=== PATIENT | male | born 1965 | race American Indian/Alaskan Native ===

== ENCOUNTER 2016-11-13 08:08 | Day surgery (SDC) | payer BC ==
[2016-11-10 11:36] VITALS: BMI 39.1
[2016-11-13 10:33] VITALS: TEMP 98
[2016-11-13 14:05] VITALS: BP 113/65; PULSE 84
--- NOTE | 2016-11-14 12:42 | PATH ---
Surgical Pathology Report Patient Name: LYUBOV ROMAN [facility]. Rec. #: [id number] /Age/Gender: 1965 (Age: 51) / M Account: [id number] Location: ASU-ENDOSCOPY Taken: 11/13/2016 Received: 11/13/2016 Reported: 11/14/2016 Physicians: Mukesh Nieves M.D. Specimen(s) Received A: POLYP CECUM B: POLYP TRANSVERSE COLON C: POLYP DESCENDING COLON Clinical History Colon screening, history of colon polyps Diverticulosis, colon polyps, hemorrhoids, redundant colon Final Diagnosis A. COLON, CECUM, POLYP, POLYPECTOMY: HYPERPLASTIC TYPE POLYP WITH FOCAL FEATURES SUGGESTIVE OF SESSILE SERRATED ADENOMA. B. COLON, TRANSVERSE, POLYP, POLYPECTOMY: TUBULAR ADENOMA. C. COLON, DESCENDING, POLYP, POLYPECTOMY: TUBULAR ADENOMA. Electronically Signed Mao Moy M.D. Gross Description A. Received in formalin, labeled "polyp cecum" is a ojeda, irregular portion of soft tissue measuring 0.5 cm in greatest dimension. The specimen is submitted in toto in one cassette. B. Received in formalin, labeled "polyp transverse colon" is a ojeda, irregular portion of soft tissue measuring 0.6 cm in greatest dimension. The specimen is submitted in toto in one cassette. C. Received in formalin, labeled "polyp descending colon" is a ojeda, polypoid portion of soft tissue measuring 0.6 cm in greatest dimension. The specimen is submitted in toto in one cassette. /11/13/201611/13/2016
== END 2016-11-13 10:55 | disposition home or self-care (01) ==
LOC: JASU-ENDO 08:08
PROVIDERS: ATTEND Internal Medicine Gastroenterology
PROC: 0DBL8ZX Excision of Transverse Colon, Via Natural or Artificial Opening Endoscopic, Diagnostic (ICD-10-PCS; 2016-11-13)
PROC: 0DBM8ZX Excision of Descending Colon, Via Natural or Artificial Opening Endoscopic, Diagnostic (ICD-10-PCS; 2016-11-13)
PROC: 0DBH8ZX Excision of Cecum, Via Natural or Artificial Opening Endoscopic, Diagnostic (ICD-10-PCS; principal; 2016-11-13 09:00)
DX: Z12.11 Encounter for screening for malignant neoplasm of colon (principal); Z86.010 Personal history of colon polyps; D12.0 Benign neoplasm of cecum; D12.4 Benign neoplasm of descending colon; D12.3 Benign neoplasm of transverse colon; K57.30 Diverticulosis of large intestine without perforation or abscess without bleeding; K64.8 Other hemorrhoids; K63.89 Other specified diseases of intestine
CPT/HCPCS: 88305-TC

== ENCOUNTER 2017-02-22 22:51 | Observation (INO) | payer BC ==
--- NOTE | 2017-02-22 23:07 | PDOC ---
History of Present Illness - General History Source: Patient Exam Limitations: No Limitations <Shruti Agosto - Last Filed: 02/23/17 01:26> <Swapnil Billy - Last Filed: 02/23/17 02:00> - General Chief Complaint: Chest Pain Stated Complaint: CHEST PAIN Time Seen by Provider: 02/22/17 23:04 - History of Present Illness Initial Comments: 02/22/17 23:33 Patient is a 51 with past medical history of asthma and hypertension( not on medication was weight controlled) who presents to the ED with chest pain, sharp in character, nonradiating, pleuritic, constant, 5/10, waxing and waning. He states that the pain is reproducible over the left chest. He denies taking anything to alleviate the chest pain. He reports increased stress due to deaths in the family. He denies any sick contact. He reports a [address] ride to [place] last week. SH: non smoker, no alcohol or drug use. Allergies: none FH: brother [place] at 57 PCP- Dr. Jacques Tool Maintenance Technician - Dr. Rebolledo (Shruti Agosto) Past History <Shruti Agosto - Last Filed: 02/23/17 01:26> - Past Medical History Anemia: No Asthma: Yes Cancer: No Cardiac Disorders: No CVA: No COPD: No CHF: No Dementia: No Diabetes: No GI Disorders: Yes (GERD, CONSTIPATION, COLON POLYPS) Disorders: No HTN: Yes Hypercholesterolemia: Yes Liver Disease: Yes (NAFLD, FATTY LIVER, 2 HEPATIC HEMANGIOMATA, HEPATITIS) Seizures: No Thyroid Disease: No - Surgical History Abdominal Surgery: Yes (hernia repair w/mesh) Appendectomy: No Cardiac Surgery: No Cholecystectomy: No Lung Surgery: No Neurologic Surgery: No Orthopedic Surgery: Yes (SX OF KNEE) - Immunization History Immunization Up to Date: No - Psycho/Social/Smoking Cessation Hx Anxiety: No Suicidal Ideation: No Smoking History: Never smoked Have you smoked in the past 12 months: No Hx Alcohol Use: Yes (OCCA.) Drug/Substance Use Hx: No Substance Use Type: None Hx Substance Use Treatment: No <Swapnil Billy - Last Filed: 02/23/17 02:00> - Past Medical History Allergies/Adverse Reactions: Allergies Allergy/AdvReac Type Severity Reaction Status Date / Time No Known Drug Allergies Allergy Verified 02/23/17 00:41 Home Medications: Ambulatory Orders NK [No Known Home Medication] 02/23/17 Cardiac Specific PMH - Complaint Specific PMHX Pacemaker: No <Swapnil Billy - Last Filed: 02/23/17 02:00> Review of Systems - Review of Systems Able to Perform ROS?: Yes <Shruti Agosto - Last Filed: 02/23/17 01:26> <Swapnil Billy - Last Filed: 02/23/17 02:00> - Review of Systems Comments:: 02/22/17 23:33 CONSTITUTIONAL: No fever, no chills, no fatigue EYES: No visual changes ENT: No ear pain, no sore throat CARDIOVASCULAR: +chest pain. no palpitations RESPIRATORY: No cough, no SOB GI: No abdominal pain, no nausea, no vomiting, no constipation, no diarrhea GENITOURINARY: No dysuria, no frequency, no hematuria MUSCULOSKELETAL: No back pain, no joint pain, no myalgias SKIN: No rash NEURO: No headache (Shruti Agosto) *Physical Exam <Shruti Agosto - Last Filed: 02/23/17 01:26> <Swapnil Billy - Last Filed: 02/23/17 02:00> - Vital Signs Last Vital Signs Temp Pulse Resp BP Pulse Ox 79 17 135/95 98 02/22/17 23:45 02/22/17 23:45 02/22/17 23:45 02/22/17 23:45 - Physical Exam Comments: 02/22/17 23:34 CONSTITUTIONAL: Well-appearing; well-nourished; in no apparent distress HEAD: Normocephalic; atraumatic EYES: PERRL; EOM intact ENMT: External appears normal; normal oropharynx NECK: Supple; non-tender; no cervical lymphadenopathy CARD: (+) reproducible left anterior chest wall tenderness. Normal S1, S2; no murmurs, rubs, or gallops RESP: Normal chest excursion with respiration; breath sounds clear and equal bilaterally; no wheezes, rhonchi, or rales ABD: Soft, non-distended; non-tender; no palpable organomegaly, no palpable hernias EXT: Normal ROM in all four extremities; non-tender to palpation; distal pulses intact SKIN: Warm, dry, no rash NEURO: No focal neurological deficiencies. (Shruti Agosto) Heart Score/ECG Review <Shruti Agosto - Last Filed: 02/23/17 01:26> <Swapnil Billy - Last Filed: 02/23/17 02:00> #1 02/22/17 23:35 NS at 74 bpm Normal ECG (Shruti Agosto) ED Treatment Course - LABORATORY CBC & Chemistry Diagram: 02/22/17 23:35 02/22/17 23:33 <Shruti Agosto - Last Filed: 02/23/17 01:26> - LABORATORY CBC & Chemistry Diagram: 02/22/17 23:35 02/22/17 23:33 <Swapnil Billy - Last Filed: 02/23/17 02:00> - ADDITIONAL ORDERS Additional order review: Laboratory Results 02/22/17 02/22/17 02/22/17 23:35 23:35 23:33 INR 1.05 D-Dimer < 200 Sodium 141 Potassium 4.3 Chloride 103 Carbon Dioxide 27 Anion Gap 11 BUN 15 Creatinine 1.2 Creat Clearance w eGFR > 60 Random Glucose 116 H Calcium 9.0 Total Bilirubin 0.2 D AST 18 ALT 36 Alkaline Phosphatase 84 D Creatine Kinase 114 Troponin I < 0.02 Total Protein 7.4 Albumin 3.9 02/22/17 23:35 RBC 5.41 MCV 83.5 MCHC 33.3 RDW 14.1 MPV 7.1 L Neutrophils % 59.8 Lymphocytes % 30.5 D Monocytes % 7.0 Eosinophils % 1.6 Basophils % 1.1 - RADIOLOGY Radiology Studies Ordered: Category Date Time Status CHEST X-RAY PORTABLE* [RAD] Stat Radiology 02/23/17 00:57 Taken - Medications Given in the ED: ED Medications Discontinued Medications Generic Name Dose Route Start Last Admin Trade Name Freq PRN Reason Stop Dose Admin Aspirin 325 mg 02/22/17 23:24 02/22/17 23:36 Asa - PO 02/22/17 23:25 325 mg ONCE ONE Administration Famotidine/Sodium Chloride 50 mls @ 100 mls/hr 02/22/17 23:24 02/22/17 23:37 Pepcid 20 Mg Premixed Ivpb - IVPB 02/22/17 23:53 100 mls/hr ONCE ONE Administration Nitroglycerin 0.4 mg 02/22/17 23:24 02/22/17 23:37 Nitrostat - SL 02/22/17 23:25 0.4 mg ONCE ONE Administration Nitroglycerin 1 inch 02/22/17 23:24 02/22/17 23:36 Nitro-Bid 2% Paste - TD 02/22/17 23:25 1 inch ONCE ONE Administration Medical Decision Making <Shruti Agosto - Last Filed: 02/23/17 01:26> <Swapnil Billy - Last Filed: 02/23/17 02:00> - Medical Decision Making 02/23/17 01:17 A call was placed to Dr. Jacques at his service. Awaiting a call back from Dr. Baker, who is software applications designer. 02/23/17 01:[address] Baker (Shruti Agosto) 02/23/17 01:58 Patient is a 51-year-old male with history of hypertension, not on any medications currently, and strong family history of coronary artery disease complains of atraumatic, partially pleuritic left-sided chest pain associated with significantly elevated blood pressure. In the ER, patient is awake and alert, initially hypertensive. EKG reveals no evidence of acute ischemia. Chest x-ray reveals no evidence of infiltrate or effusion or cardiomegaly. Patient received aspirin, followed by sublingual and transdermal nitroglycerin and Pepcid IV. Patient reports resolution of his discomfort at this time. First set of cardiac enzymes within normal limit. I discussed the case with Dr. Baker covering for Dr. Jacques. Patient will require admission to telemetry for serial cardiac enzymes and cardiology evaluation. (Swapnil Billy) *DC/Admit/Observation/Transfer <Shruti Agosto - Last Filed: 02/23/17 01:26> - Discharge Dispostion Admit: Yes <Swapnil Billy - Last Filed: 02/23/17 02:00> Diagnosis at time of Disposition: Acute coronary syndrome Hypertension Qualifiers: Hypertension type: essential hypertension Qualified Code(s): I10 - Essential ( primary) hypertension - Discharge Dispostion Decision to Admit order Date/Time: Decision to Admit Order Category Date Time Status Decision to Admit to Hospital Routine Admission 02/23/17 01:50 Active - Referrals Referrals: Forrest Jacques MD [Primary Care Provider] - - Attestations Scribe Attestion: 02/22/17 23:35 Documentation prepared by KYRIE Jc, acting as medical front desk specialist for Swapnil Billy MD. (Shruti Agosto) Physician Attestion: 02/23/17 01:58 The documentation was prepared by the scribe under my direct supervision. I have reviewed the documentation which correctly represents the findings, medical decision-making and critical action taken by me. (Swapnil Billy)
[2017-02-22] MEDS ORDERED: FAMOTIDINE 20 MG/50 ML IVPB 50 ML IVPB ONE ×2 (23:24→23:39)
[2017-02-22] MEDS ORDERED: NITROGLYCERIN 2% OINTMENT - 1GM PACKET TD ONE ×2 (23:24→23:39)
[2017-02-22] MEDS ORDERED: ASPIRIN 325 MG TABLET PO ONE (23:24)
[2017-02-22] MEDS ORDERED: NITROGLYCERIN SUBLINGUAL 1/150 0.4 MG TAB SL ONE (23:24)
[2017-02-22] MEDS ORDERED: ASPIRIN 325 MG TABLET ONE (23:38)
[2017-02-22] MEDS ORDERED: NITROGLYCERIN SUBLINGUAL 1/150 0.4 MG TAB ONE (23:39)
[2017-02-22 23:41] LABS: BASOPHIL 1.1 % (0-2.0); EOSINOPHIL 1.6 % (0-4.5); MCH 27.8 pg (25.7-33.7); MCHC 33.3 g/dl (32.0-35.9); MEAN CELL VOLUME 83.5 fl (80-96); MEAN PLT VOLUME 7.1 fl (7.5-11.1); NEUTROPHILS 59.8 % (42.8-82.8); PLATELET COUNT 320 K/MM3 (134-434); RDW 14.1 % (11.9-15.9); WHITE BLOOD COUNT 8.5 K/mm3 (4.0-10.0)
[2017-02-22 23:55] LABS: INR 1.05 (0.82-1.09); PROTHROMBIN TIME (PATIENT) 11.6 SEC (9.98-11.88)
[2017-02-23 00:27] LABS: ALBUMIN 3.9 g/dl (3.4-5.0); ANION GAP 11 (8-16); BILIRUBIN,TOTAL 0.2 mg/dL (0.2-1.0); CO2 27 mmol/L (21-32); COCKROFT - GAULT 116.46; CREATININE 1.2 mg/dL (0.7-1.3); GLUCOSE,RANDOM 116 mg/dL (74-106); SGOT/AST 18 U/L (15-37); SGPT/ALT 36 U/L (12-78); TOT PROT 7.4 g/dl (6.4-8.2)
[2017-02-23 00:29] LABS: ALK PHOS 84 U/L (45-117); TROPONIN I < 0.02 ng/ml (0.00-0.05)
[2017-02-23] MEDS ORDERED: ATORVASTATIN CA 40 MG TABLET (FP) PO ONE (01:40)
[2017-02-23] MEDS ORDERED: NITROGLYCERIN 2% OINTMENT - 1GM PACKET TD SCH (01:45)
[2017-02-23] MEDS: HEPARIN NA (PORCINE) 5,000 UNITS/ML 1ML VIAL SQ SCH ×3 (02:08→21:37)
[2017-02-23 03:31] VITALS: BMI 35.5
[2017-02-23 03:43] LABS: CHOLESTEROL 205 mg/dL (50-200)
[2017-02-23 03:44] LABS: TROPONIN I < 0.02 ng/ml (0.00-0.05)
[2017-02-23 04:15] LABS: LDL CHOLESTEROL (ONLY SJRH) 137 mg/dL (5-100)
[2017-02-23] MEDS: NITROGLYCERIN 2% OINTMENT - 1GM PACKET TD SCH ×4 (05:45→23:46)
[2017-02-23 06:45] LABS: TROPONIN I < 0.02 ng/ml (0.00-0.05)
--- NOTE | 2017-02-23 09:41 | EKG ---
Test Reason : Blood Pressure : / mmHG Vent. Rate : 072 BPM Atrial Rate : 072 BPM P-R Int : 150 ms QRS Dur : 088 ms QT Int : 394 ms P-R-T Axes : 028 061 063 degrees QTc Int : 431 ms NORMAL SINUS RHYTHM EARLY REPOLARIZATION Confirmed by JUAN J CARRILLO MD ([id number]) on 02/23/2017 9:41:41 AM Referred By: Confirmed By:JUAN J CARRILLO MD
--- NOTE | 2017-02-23 09:43 | EKG ---
Test Reason : Blood Pressure : / mmHG Vent. Rate : 074 BPM Atrial Rate : 074 BPM P-R Int : 154 ms QRS Dur : 098 ms QT Int : 374 ms P-R-T Axes : 033 059 055 degrees QTc Int : 415 ms NORMAL SINUS RHYTHM EARLY REPOLARIZATION Confirmed by JUAN J CARRILLO MD ([id number]) on 02/23/2017 9:42:47 AM Referred By: Confirmed By:JUAN J CARRILLO MD
[2017-02-23] MEDS ORDERED: ASPIRIN COATED 81 MG TABLET.EC PO SCH (10:00)
[2017-02-23] MEDS: ACETAMINOPHEN 325 MG TABLET (FP) PO PRN (11:12)
--- NOTE | 2017-02-23 11:43 | HP ---
Admitting History and Physical - Primary Care Physician PCP: Forrest Jacques - Admission Chief Complaint: CHEST PAIN / DYSPNEA History of Present Illness: 51 Y/O MALE WILL KNOWN TO OUR SERVICE, PRESENTS WITH CHEST PAIN THAT PROGRESSIVELY WORSENED YESTERDAY. PATIENT IS MORBIDEL OBESE WITH ASTHMA WELL CONTROLLED, LIPIDEMIA AND A NON-COMPLIANT DIETARY LIFESTYLE. IMPOTANT NOTE PATIENT'S FATHER AND BROTHER HAVE IN THE PASSE 2 WEEKS INCREASING HIS STRESS LEVEL. History Source: Patient Limitations to Obtaining History: No Limitations - Past Medical History Pulmonary: Yes: Asthma - Smoking History Smoking history: Never smoked Have you smoked in the past 12 months: No - Alcohol/Substance Use Hx Alcohol Use: Yes (OCCA.) Home Medications - Allergies Allergies/Adverse Reactions: Allergies Allergy/AdvReac Type Severity Reaction Status Date / Time No Known Drug Allergies Allergy Verified 02/23/17 00:41 - Home Medications Home Medications: Ambulatory Orders NK [No Known Home Medication] 02/23/17 Review of Systems - Review of Systems Constitutional: reports: No Symptoms, Loss of Appetite Eyes: reports: No Symptoms HENT: reports: No Symptoms Neck: reports: No Symptoms Cardiovascular: reports: Chest Pain Respiratory: reports: No Symptoms Gastrointestinal: reports: No Symptoms Genitourinary: reports: No Symptoms Musculoskeletal: reports: No Symptoms Integumentary: reports: No Symptoms Neurological: reports: No Symptoms Endocrine: reports: No Symptoms Hematology/Lymphatic: reports: No Symptoms Psychiatric: reports: No Symptoms Physical Examination Vital Signs: Vital Signs Temperature 97.6 F 02/23/17 05:34 Pulse Rate 78 02/23/17 07:29 Respiratory Rate 20 02/23/17 05:34 Blood Pressure 108/62 02/23/17 05:34 O2 Sat by Pulse Oximetry (%) 98 02/23/17 07:29 Constitutional: Yes: Mild Distress Eyes: Yes: WNL HENT: Yes: WNL Neck: Yes: WNL Cardiovascular: Yes: WNL Respiratory: Yes: WNL Gastrointestinal: Yes: WNL Renal/: Yes: WNL Musculoskeletal: Yes: WNL Extremities: Yes: WNL Edema: No Peripheral Pulses WNL: Yes Integumentary: Yes: WNL Wound/Incision: Yes: Clean/Dry Neurological: Yes: WNL ...Motor Strength: WNL Psychiatric: Yes: WNL Problem List - Problems (1) Acute coronary syndrome Code(s): I24.9 - ACUTE ISCHEMIC HEART DISEASE, UNSPECIFIED (2) Hypertension Code(s): I10 - ESSENTIAL (PRIMARY) HYPERTENSION Qualifiers: Hypertension type: essential hypertension Qualified Code(s): I10 - Essential (primary) hypertension (3) Grieving family Assessment/Plan: DENIES SUICIDE OR HOMICIDAL THOUGHT Code(s): [id number] - Assessment/Plan STRESS TEST TODAY 02 SUPPORT TROPONINS TO BE CHECKED 3 SERIES LIPITOR STARTED
--- NOTE | 2017-02-23 14:26 | CON.CARD ---
Consult Consult Specialty:: Cardiology Reason for Consultation:: Chest pain - History of Present Illness History of Present Illness: 51 M with Family history of CAD, obesity, DICK, HLD, HTN. He has moderate Asthma. He had a recent in the family and started having intermittent chest pain with radiation to his neck with exertion but also with rest. Finally came to the ER with ongoing pain that was relieved with NTP. Has been pain free since. ECG was normal. Negative CE. Stress test today: exercised 7min Bruice to MPHR 84% with moderate inferior wall ischemia with preserved EF. - History Source History Provided By: Patient, Family Member Limitations to Obtaining History: No Limitations - Past Medical History Cardio/Vascular: Yes: HTN, Hyperlipdemia Pulmonary: Yes: Asthma - Past Surgical History Past Surgical History: Yes: Hernia Repair - Alcohol/Substance Use Hx Alcohol Use: Yes (OCCA.) Number of Drinks Daily: 1 - Smoking History Smoking history: Never smoked Have you smoked in the past 12 months: No Home Medications - Allergies Allergies/Adverse Reactions: Allergies Allergy/AdvReac Type Severity Reaction Status Date / Time No Known Drug Allergies Allergy Verified 02/23/17 00:41 - Home Medications Home Medications: Ambulatory Orders NK [No Known Home Medication] 02/23/17 Family Disease History - Family Disease History Family Disease History: Heart Disease: Brother (Aged 57) Review of Systems - Review of Systems Constitutional: reports: No Symptoms Eyes: reports: No Symptoms HENT: reports: No Symptoms Neck: reports: No Symptoms Cardiovascular: reports: No Symptoms Respiratory: reports: No Symptoms Gastrointestinal: reports: No Symptoms Genitourinary: reports: No Symptoms Musculoskeletal: reports: No Symptoms Integumentary: reports: No Symptoms Neurological: reports: No Symptoms Endocrine: reports: No Symptoms Vital Signs: Vital Signs Temperature 97.6 F 02/23/17 05:34 Pulse Rate 78 02/23/17 07:29 Respiratory Rate 20 02/23/17 05:34 Blood Pressure 108/62 02/23/17 05:34 O2 Sat by Pulse Oximetry (%) 98 02/23/17 07:29 Constitutional: Yes: Well Nourished, Obese Eyes: Yes: WNL HENT: Yes: WNL, Atraumatic, Normocephalic Neck: Yes: WNL, Supple, Trachea Midline Respiratory: Yes: WNL, Regular, CTA Bilaterally Gastrointestinal: Yes: Normal Bowel Sounds, Soft Cardiovascular: Yes: Regular Rate and Rhythm JVD: No Carotid Bruit: No PMI: Non-Displaced Heart Sounds: Yes: S1, S2 Musculoskeletal: Yes: WNL Edema: No Peripheral Pulses WNL: Yes - Other Data Labs, Other Data: INR, PTT INR 1.05 (0.82-1.09) 02/22/17 23:35 NSR no STT changes Echo: Report Reviewed Ejection Fraction %: LVEF > or = 40 % Problem List - Problems (1) Acute coronary syndrome Code(s): I24.9 - ACUTE ISCHEMIC HEART DISEASE, UNSPECIFIED (2) Hypertension Code(s): I10 - ESSENTIAL (PRIMARY) HYPERTENSION Qualifiers: Hypertension type: essential hypertension Qualified Code(s): I10 - Essential (primary) hypertension Assessment/Plan 51 M HLD, mod Asthma, Obesity, DICK with new onset angina and moderate Inferior wall ischemia with preserved EF. Given risk factor profile and severity of symptoms, would suggest early cath and possible intervention. Rec: Increase Lipitor 80mg QD ASA 81mg qd NPO after midnight sunday. Arranged for the patient to be transferred to [facility] for cath on sunday with Dr. Muñiz. Discussed with Patient and family in detail.
[2017-02-23] MEDS: METOPROLOL TARTRATE 25 MG TABLET (FP) PO SCH (14:27)
[2017-02-23] MEDS: PANTOPRAZOLE 40 MG TABLET (FP) PO SCH (14:27)
[2017-02-23] MEDS: ATORVASTATIN CA 80 MG TABLET (FP) PO SCH (21:37)
[2017-02-23] MEDS ORDERED: ATORVASTATIN CA 40 MG TABLET (FP) PO SCH (22:00)
[2017-02-23] MEDS ORDERED: NITROGLYCERIN SUBLINGUAL 1/150 0.4 MG TAB ONE (23:12)
[2017-02-23] MEDS ORDERED: NITROGLYCERIN 2% OINTMENT - 1GM PACKET TD ONE (23:16)
--- NOTE | 2017-02-23 23:29 | HOSP ---
Subjective - Review of Symptoms Events since last encounter: I was called to floor by nurse to evaluate patient for chest pain. Patient in bed with hand on his chest. States pain is mid/;left chest, tight/sharp, non radiating pain. Denies lightheadedness, MICHAEL, SOB, palpitations, jaw pain, arm tingling. General: No: Chills, Night Sweats, Fatigue, Malaise HEENT: No: Head Aches, Visual Changes Pulmonary: No: Dyspnea, Cough, Pleuritic Chest Pain Cardiovascular: Yes: Chest Pain, Paroxysmal Noc. Dyspnea. No: Palpitations, Orthopnea, Light Headedness Gastrointestinal: No: Nausea, Vomiting, Abdominal Pain Musculoskeletal: Yes: No Symptoms Neurological: No: Weakness, Numbness, Incoordination Physical Examination Vital Signs: Vital Signs Temperature 98.7 F 02/23/17 21:42 Pulse Rate 70 02/23/17 21:42 Respiratory Rate 16 02/23/17 21:42 Blood Pressure 138/77 02/23/17 21:42 O2 Sat by Pulse Oximetry (%) 99 02/23/17 10:00 Constitutional: Yes: Calm Eyes: Yes: WNL HENT: Yes: WNL Neck: Yes: WNL Cardiovascular: Yes: Regular Rate and Rhythm, S1, S2. No: Murmur Respiratory: Yes: Regular, CTA Bilaterally Gastrointestinal: Yes: Normal Bowel Sounds, Soft, Abdomen, Obese Peripheral Pulses WNL: Yes Peripheral Pulses: Left Radial: 2+, Right Radial: 2+, Left Doralis Pedis: 2+, Right Dorsalis Pedis: 2+ Neurological: Yes: Alert, Oriented ...Motor Strength: WNL Psychiatric: Yes: Alert, Oriented Hospitalist Encounter Assessment: 51 year old male with obesity, asthma , htn, and DICK, admitted for chest pain, found to have moderate inferior wall ischemia with preserved EF on stress test today, complains of repeat chest pain. #chest pain atypical vs unstable angina: -when I palpated chest he did admit to mild tenderness which may just be musculoskeletal, although due to stress test finding will give nitro paste, which patient states relieves symptoms; patient already on asa -stat ecg: NSR -cardiac profile pending Visit type - Emergency Visit Emergency Visit: Yes ED Registration Date: 02/23/17 Care time: The patient presented to the Emergency Department on the above date and was hospitalized for further evaluation of their emergent condition. - New Patient This patient is new to me today: Yes Date on this admission: 02/23/17 - Critical Care Critical Care patient: No
[2017-02-24 00:47] LABS: TROPONIN I < 0.02 ng/ml (0.00-0.05)
[2017-02-24] MEDS: NITROGLYCERIN 2% OINTMENT - 1GM PACKET TD SCH ×3 (05:57→17:59)
[2017-02-24] MEDS ORDERED: NITROGLYCERIN SUBLINGUAL 1/150 0.4 MG TAB ONE (06:34)
[2017-02-24] MEDS: PANTOPRAZOLE 40 MG TABLET (FP) PO SCH (10:53)
[2017-02-24] MEDS: HEPARIN NA (PORCINE) 5,000 UNITS/ML 1ML VIAL SQ SCH ×2 (10:53→22:10)
[2017-02-24] MEDS: METOPROLOL TARTRATE 25 MG TABLET (FP) PO SCH (10:54)
[2017-02-24] MEDS: ASPIRIN COATED 81 MG TABLET.EC PO SCH (10:54)
--- NOTE | 2017-02-24 15:38 | PN ---
Progress Note, Physician History of Present Illness: had chest pain last night no further pain at this time - Current Medication List Current Medications: Active Medications Acetaminophen (Tylenol -) 650 mg PO Q4H PRN PRN Reason: FEVER OR PAIN Last Admin: 02/23/17 11:12 Dose: 650 mg Aspirin (Ecotrin -) 81 mg PO DAILY [facility] Last Admin: 02/24/17 10:54 Dose: 81 mg Atorvastatin Calcium (Lipitor -) 80 mg PO HS [facility] Last Admin: 02/23/17 21:37 Dose: 80 mg Heparin Sodium (Porcine) (Heparin -) 5,000 unit SQ BID [facility] Last Admin: 02/24/17 10:53 Dose: 5,000 unit Metoprolol Tartrate (Lopressor -) 25 mg PO DAILY [facility] Last Admin: 02/24/17 10:54 Dose: 25 mg Nitroglycerin (Nitro-Bid 2% Paste -) 1 inch TD Q6HPO [facility] Last Admin: 02/24/17 11:26 Dose: 1 inch Pantoprazole Sodium (Protonix -) 40 mg PO DAILY [facility] Last Admin: 02/24/17 10:53 Dose: 40 mg - Objective Vital Signs: Vital Signs Temperature 98.4 F 02/24/17 14:00 Pulse Rate 74 02/24/17 14:00 Respiratory Rate 18 02/24/17 14:00 Blood Pressure 122/74 02/24/17 14:00 O2 Sat by Pulse Oximetry (%) 97 02/24/17 00:12 Cardiovascular: Yes: Regular Rate and Rhythm Respiratory: Yes: Regular, CTA Bilaterally Gastrointestinal: Yes: Normal Bowel Sounds, Soft Labs: INR, PTT INR 1.05 (0.82-1.09) 02/22/17 23:35 Problem List - Problems (1) Acute coronary syndrome Assessment/Plan: for cardiac cath ce negative positive stress test Orders 02/23/17 01:40 Atorvastatin Ca [Lipitor -] 40 mg PO ONCE ONE 02/23/17 10:00 Metoprolol Tartrate [Lopressor -] 25 mg PO DAILY 02/24/17 00:00 Nitroglycerin 2% Paste [Nitro-Bid 2% Paste -] 1 inch TD Q6HPO 02/24/17 10:00 Aspirin Coated [Ecotrin -] 81 mg PO DAILY Code(s): I24.9 - ACUTE ISCHEMIC HEART DISEASE, UNSPECIFIED (2) Hypertension Assessment/Plan: controlled Vital Signs Period Temp Pulse Resp BP Sys/[place] Pulse Ox Last 24 Hr 97.6 F-98.7 F 62-87 16-20 121-138/60-79 97 Code(s): I10 - ESSENTIAL (PRIMARY) HYPERTENSION Qualifiers: Hypertension type: essential hypertension Qualified Code(s): I10 - Essential (primary) hypertension (3) Hyperlipidemia Assessment/Plan: on lipitor Code(s): E78.5 - HYPERLIPIDEMIA, UNSPECIFIED
[2017-02-24 16:55] LABS: TROPONIN I < 0.02 ng/ml (0.00-0.05)
--- NOTE | 2017-02-24 19:17 | EKG ---
Test Reason : Blood Pressure : / mmHG Vent. Rate : 069 BPM Atrial Rate : 069 BPM P-R Int : 156 ms QRS Dur : 090 ms QT Int : 374 ms P-R-T Axes : 023 053 047 degrees QTc Int : 400 ms NORMAL SINUS RHYTHM NORMAL ECG WHEN COMPARED WITH ECG OF 23-FEB-2017 02:04, NO SIGNIFICANT CHANGE WAS FOUND Confirmed by CESAR HENDRICKSON MD ([id number]) on 02/24/2017 7:17:16 PM Referred By: Confirmed By:CESAR HENDRICKSON MD
[2017-02-24] MEDS: ATORVASTATIN CA 80 MG TABLET (FP) PO SCH (22:10)
[2017-02-25] MEDS: NITROGLYCERIN 2% OINTMENT - 1GM PACKET TD SCH ×5 (00:18→23:29)
[2017-02-25 08:08] LABS: TROPONIN I < 0.02 ng/ml (0.00-0.05)
[2017-02-25] MEDS: HEPARIN NA (PORCINE) 5,000 UNITS/ML 1ML VIAL SQ SCH ×2 (09:55→22:17)
[2017-02-25] MEDS: PANTOPRAZOLE 40 MG TABLET (FP) PO SCH (09:55)
[2017-02-25] MEDS: METOPROLOL TARTRATE 25 MG TABLET (FP) PO SCH (09:55)
[2017-02-25] MEDS: ASPIRIN COATED 81 MG TABLET.EC PO SCH (09:55)
[2017-02-25] MEDS: ACETAMINOPHEN 325 MG TABLET (FP) PO PRN ×2 (10:20→19:46)
--- NOTE | 2017-02-25 10:30 | PN ---
Progress Note, Physician History of Present Illness: no cp or sob - Current Medication List Current Medications: Active Medications Acetaminophen (Tylenol -) 650 mg PO Q4H PRN PRN Reason: FEVER OR PAIN Last Admin: 02/25/17 10:20 Dose: 650 mg Aspirin (Ecotrin -) 81 mg PO DAILY [facility] Last Admin: 02/25/17 09:55 Dose: 81 mg Atorvastatin Calcium (Lipitor -) 80 mg PO HS [facility] Last Admin: 02/24/17 22:10 Dose: 80 mg Heparin Sodium (Porcine) (Heparin -) 5,000 unit SQ BID [facility] Last Admin: 02/25/17 09:55 Dose: 5,000 unit Metoprolol Tartrate (Lopressor -) 25 mg PO DAILY [facility] Last Admin: 02/25/17 09:55 Dose: 25 mg Nitroglycerin (Nitro-Bid 2% Paste -) 1 inch TD Q6HPO [facility] Last Admin: 02/25/17 05:15 Dose: 1 inch Pantoprazole Sodium (Protonix -) 40 mg PO DAILY [facility] Last Admin: 02/25/17 09:55 Dose: 40 mg - Objective Vital Signs: Vital Signs Temperature 97.9 F 02/25/17 09:00 Pulse Rate 87 02/25/17 09:00 Respiratory Rate 18 02/25/17 09:00 Blood Pressure 116/60 02/25/17 09:00 O2 Sat by Pulse Oximetry (%) 93 L 02/25/17 06:26 Cardiovascular: Yes: Regular Rate and Rhythm Respiratory: Yes: Regular, CTA Bilaterally Gastrointestinal: Yes: Normal Bowel Sounds, Soft Labs: INR, PTT INR 1.05 (0.82-1.09) 02/22/17 23:35 Problem List - Problems (1) Acute coronary syndrome Assessment/Plan: for cardiac cath ce negative positive stress test Orders 02/23/17 01:40 Atorvastatin Ca [Lipitor -] 40 mg PO ONCE ONE 02/23/17 10:00 Metoprolol Tartrate [Lopressor -] 25 mg PO DAILY 02/24/17 00:00 Nitroglycerin 2% Paste [Nitro-Bid 2% Paste -] 1 inch TD Q6HPO 02/24/17 10:00 Aspirin Coated [Ecotrin -] 81 mg PO DAILY Code(s): I24.9 - ACUTE ISCHEMIC HEART DISEASE, UNSPECIFIED (2) Hypertension Assessment/Plan: controlled Vital Signs Period Temp Pulse Resp BP Sys/[place] Pulse Ox Last 24 Hr 97.6 F-98.7 F 62-87 16-20 121-138/60-79 97 Code(s): I10 - ESSENTIAL (PRIMARY) HYPERTENSION Qualifiers: Hypertension type: essential hypertension Qualified Code(s): I10 - Essential (primary) hypertension (3) Hyperlipidemia Assessment/Plan: on lipitor Code(s): E78.5 - HYPERLIPIDEMIA, UNSPECIFIED
--- NOTE | 2017-02-25 15:42 | PN ---
Progress Note, Physician Chief Complaint: Cath planned History of Present Illness: 51 M HLD, mod Asthma, Obesity, DICK with new onset angina and moderate Inferior wall ischemia with preserved EF. Given risk factor profile and severity of symptoms, would suggest early cath and possible intervention. Rec: Increase Lipitor 80mg QD ASA 81mg qd NPO after midnight sunday. Arranged for the patient to be transferred to [facility] for cath on sunday with Dr. Muñiz. Discussed with Patient - Current Medication List Current Medications: Active Medications Acetaminophen (Tylenol -) 650 mg PO Q4H PRN PRN Reason: FEVER OR PAIN Last Admin: 02/25/17 10:20 Dose: 650 mg Aspirin (Ecotrin -) 81 mg PO DAILY [facility] Last Admin: 02/25/17 09:55 Dose: 81 mg Atorvastatin Calcium (Lipitor -) 80 mg PO HS [facility] Last Admin: 02/24/17 22:10 Dose: 80 mg Heparin Sodium (Porcine) (Heparin -) 5,000 unit SQ BID [facility] Last Admin: 02/25/17 09:55 Dose: 5,000 unit Metoprolol Tartrate (Lopressor -) 25 mg PO DAILY [facility] Last Admin: 02/25/17 09:55 Dose: 25 mg Nitroglycerin (Nitro-Bid 2% Paste -) 1 inch TD Q6HPO [facility] Last Admin: 02/25/17 12:22 Dose: 1 inch Pantoprazole Sodium (Protonix -) 40 mg PO DAILY [facility] Last Admin: 02/25/17 09:55 Dose: 40 mg - Objective Vital Signs: Vital Signs Temperature 97.9 F 02/25/17 14:57 Pulse Rate 86 02/25/17 14:57 Respiratory Rate 18 02/25/17 14:57 Blood Pressure 123/71 02/25/17 14:57 O2 Sat by Pulse Oximetry (%) 93 L 02/25/17 06:26 Constitutional: Yes: Other ( Constitutional: Yes: Well Nourished, Obese Eyes: Yes: WNL HENT: Yes: WNL, Atraumatic, Normocephalic Neck: Yes: WNL, Supple, Trachea Midline Respiratory: Yes: WNL, Regular, CTA Bilaterally Gastrointestinal : Yes: Normal Bowel Sounds, Soft Cardiovascular: Yes: Regular Rate and Rhythm JVD: No Carotid Bruit: No PMI: Non-Displaced Heart Sounds: Yes: S1, S2 Musculoskeletal: Yes: WNL Edema: No Peripheral Pulses WNL: Yes) Labs: INR, PTT INR 1.05 (0.82-1.09) 02/22/17 23:35 Assessment/Plan [facility] *LIVE* Assessment/Plan 51 M HLD, mod Asthma, Obesity, DICK with new onset angina and moderate Inferior wall ischemia with preserved EF. Given risk factor profile and severity of symptoms, would suggest early cath and possible intervention. Rec: Increase Lipitor 80mg QD ASA 81mg qd NPO after midnight sunday. Arranged for the patient to be transferred to [facility] for cath on sunday with Dr. Muñiz. Discussed with Patient.
[2017-02-25] MEDS: ATORVASTATIN CA 80 MG TABLET (FP) PO SCH (22:17)
[2017-02-26] MEDS: NITROGLYCERIN 2% OINTMENT - 1GM PACKET TD SCH (05:56)
[2017-02-26 06:42] VITALS: TEMP 97.9
[2017-02-26 08:15] VITALS: BP 152/90; PULSE 84
== END 2017-02-26 08:38 | disposition short-term general hospital (02) ==
LOC: JER 22:51 → UNDOADMOB 02-23 01:18 → JERBED 02-23 01:18 → INTOOBSV 02-23 01:50 → OBSVTOIN 02-23 01:50 → UNDOADMOB 02-23 01:50 → JERBED 02-23 01:50 → J4S 02-23 03:14 → JERBED 02-23 03:14 → J4S 02-23 11:34
PROVIDERS: ADMIT Family Medicine; ATTEND Family Medicine
PROC: 3E033GC Introduction of Other Therapeutic Substance into Peripheral Vein, Percutaneous Approach (ICD-10-PCS; principal; 2017-02-23)
PROC: 3E013GC Introduction of Other Therapeutic Substance into Subcutaneous Tissue, Percutaneous Approach (ICD-10-PCS; 2017-02-23)
DX: I24.9 Acute ischemic heart disease, unspecified (principal); I10 Essential (primary) hypertension; Z63.4 Disappearance and death of family member; J45.909 Unspecified asthma, uncomplicated; K21.9 Gastro-esophageal reflux disease without esophagitis; E78.5 Hyperlipidemia, unspecified; K76.0 Fatty (change of) liver, not elsewhere classified; E66.9 Obesity, unspecified; Z68.37 Body mass index [BMI] 37.0-37.9, adult; Z91.14 Patient's other noncompliance with medication regimen; G47.33 Obstructive sleep apnea (adult) (pediatric)
CPT/HCPCS: 36415; 71010-TC; 78452-TC; 80053; 80061; 82550; 83036; 83721; 84484; 85025; 85379; 85610; 93005; 93010; 93017; 93306-TC; 94660; 99284-25; A9502; G0378; J1644

== ENCOUNTER 2017-10-05 22:22 | Emergency (ER) | payer OTHER, BC ==
--- NOTE | 2017-10-05 22:27 | PDOC ---
History of Present Illness - General Chief Complaint: Injury Stated Complaint: LT SHOULDER PAIN - History of Present Illness Initial Comments: This 52-year-old man with a history of CAD/HTN/HLD presents with left shoulder injury. Yesterday, while working with [employer] (patient works for [employer]) patient hyperextended left shoulder when reaching for equipment. He did not fall on the shoulder and did not have equipment strike the shoulder. Since hyperextending the joint, the patient has had pain in the shoulder, worse with movement. He had taken ibuprofen (400 mg) tonight for the pain without significant relief. Yesterday, soon after the injury he had a brief episode of paresthesias in the distal left arm. These resolved spontaneously in a short period of time. He has not noted any weakness or other sensory changes in the left arm. No other injury or acute symptoms present Past History - Past Medical History Allergies/Adverse Reactions: Allergies Allergy/AdvReac Type Severity Reaction Status Date / Time No Known Drug Allergies Allergy Verified 02/23/17 00:41 Home Medications: Ambulatory Orders Acetaminophen [Tylenol .Regular Strength -] 650 mg PO Q4H PRN #0 tablet Atorvastatin Ca [Lipitor] 80 mg PO HS tablet 02/26/17 Aspirin [Ecotrin] 81 mg PO DAILY 10/05/17 Ticagrelor [Brilinta] 90 mg PO BID 10/05/17 Anemia: No Asthma: Yes Cancer: No Cardiac Disorders: No CVA: No COPD: No CHF: No Dementia: No Diabetes: No GI Disorders: Yes (GERD, CONSTIPATION, COLON POLYPS) Disorders: No HTN: Yes Hypercholesterolemia: Yes Liver Disease: Yes (NAFLD, FATTY LIVER, 2 HEPATIC HEMANGIOMATA, HEPATITIS) Seizures: No Thyroid Disease: No - Surgical History Abdominal Surgery: Yes (hernia repair w/mesh) Appendectomy: No Cardiac Surgery: No Cholecystectomy: No Lung Surgery: No Neurologic Surgery: No Orthopedic Surgery: Yes (SX OF KNEE) - Immunization History Immunization Up to Date: No - Suicide/Smoking/Psychosocial Hx Smoking History: Never smoked Have you smoked in the past 12 months: No Hx Alcohol Use: Yes (OCCA.) Drug/Substance Use Hx: No Substance Use Type: None Hx Substance Use Treatment: No Review of Systems - Review of Systems Able to Perform ROS?: Yes Comments:: P *Physical Exam - Physical Exam Comments: GENERAL: Adult male, alert and oriented times 3, in no acute distress HEAD: Normal with no signs of trauma. EYES: PERRLA, EOMI, sclera anicteric, conjunctiva clear. ENT: Ears normal, nares patent, oropharynx clear without exudates. Dry mucous membranes. NECK: Normal range of motion, supple without lymphadenopathy, JVD, or masses. LUNGS: Breath sounds equal, clear to auscultation bilaterally. No wheezes, and no crackles. HEART:Regular rate and rhythm, normal S1 and S2 without murmur, rub or gallop. ABDOMEN:.normal bowel sounds No guarding,tenderness or rebound.No masses No distention. EXTREMITIES: Left upper extremity-no deformity/point tenderness/edema/ecchymosis ; shoulder pain reproduced on abduction greater than 45 No elbow/forearm/ wrist/hand tenderness/deformity/edema/ecchymosis Motor/sensory functioning intact; radial pulse palpable at the wrist Remainder of extremity exam is normal NEUROLOGICAL: Cranial nerves II through XII grossly intact. Normal speech. No focal neurological deficits. MUSCULOSKELETAL: Back non-tender to palpation, no CVA tenderness SKIN: Warm, Dry, normal turgor, no rashes or lesions noted. Progress Note - Progress Note Progress Note: Left shoulder x-ray performed and interpreted by of radiology staff: Significant evidence of DJD but no acute fracture/dislocation Results discussed with the patient. We will give 1 dose of Toradol 60 mg IM for analgesia/anti-inflammatory effects Patient states that he does not normally take any medications for pain and does not need prescription. Family has an orthopedist and he will follow-up with him within the next 4-5 days. He has been advised to avoid strenuous activity in his job and at home. 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 but will avoid strenuous physical activity at work *DC/Admit/Observation/Transfer Diagnosis at time of Disposition: Sprain of shoulder, left Qualifiers: Encounter type: initial encounter Shoulder sprain type: rotator cuff capsule Qualified Code(s): S43.422A - Sprain of left rotator cuff capsule, initial encounter - Discharge Dispostion Disposition: HOME Condition at time of disposition: Stable - Referrals Referrals: Forrest Jacques MD [Primary Care Provider] - - Patient Instructions Printed Discharge Instructions: Shoulder Sprain Additional Instructions: Avoid strenuous activity until seen by your orthopedist Ibuprofen/acetaminophen/naproxen as needed for pain (take with food) Follow-up with the orthopedist within the next 5-7 days Return to ER if you have persistent severe pain or numbness/weakness of lower arm - Post Discharge Activity
[2017-10-05 22:33] VITALS: BP 145/93; PULSE 88; TEMP 97.3; BMI 36.2
[2017-10-05] MEDS ORDERED: KETOROLAC TROMETHAMINE 60 MG/2 ML VIAL IM ONE (23:24)
[2017-10-05] MEDS ORDERED: KETOROLAC TROMETHAMINE 60 MG/2 ML VIAL ONE (23:26)
== END 2017-10-05 23:52 | disposition home or self-care (01) ==
LOC: FER 22:22
PROC: 3E0233Z Introduction of Anti-inflammatory into Muscle, Percutaneous Approach (ICD-10-PCS; principal; 2017-10-05)
DX: S43.422A Sprain of left rotator cuff capsule, initial encounter (principal); X58.XXXA Exposure to other specified factors, initial encounter; Y93.89 Activity, other specified; Y92.9 Unspecified place or not applicable; Y99.0 Civilian activity done for income or pay; I25.10 Atherosclerotic heart disease of native coronary artery without angina pectoris; I10 Essential (primary) hypertension; E78.5 Hyperlipidemia, unspecified; J45.909 Unspecified asthma, uncomplicated; K21.9 Gastro-esophageal reflux disease without esophagitis
CPT/HCPCS: 73030-TC-LT; 99281-25

== ENCOUNTER 2017-10-30 13:49 | Emergency (ER) | payer BC, OTHER ==
--- NOTE | 2017-10-30 14:23 | PDOC ---
History of Present Illness - General Chief Complaint: Injury Stated Complaint: RT MIDDLE FINGER PAIN,INJURY Time Seen by Provider: 10/30/17 14:22 - History of Present Illness Initial Comments: 52 year old male with PMH of CAD/HTN/HLD presenting with right hand pain, right hip pain, and right knee pain with right hand deformity. States that he was at work and picked up a tool with his right hand. He turned and tripped ( walking up an incline) then fell forward and to his right side. He braced his fall with his hand but immediately had pain in his right hand with deformity and difficulty manipulating the fingers in that hand. He did not hit his head or lose consciousness. He also had some slight difficulty ambulating because of pain in his right knee and right hip. He has chronic pain in his left shoulder and is in the process of scheduling a total left shoulder replacement but also injured it during this incident. He denies fevers, chills, nausea, vomiting, head injury, syncope, loss of consciousness, chest pain, SOB, bleeding, or other sick symptom. 10/30/17 18:12 Past History - Past Medical History Allergies/Adverse Reactions: Allergies Allergy/AdvReac Type Severity Reaction Status Date / Time No Known Drug Allergies Allergy Verified 10/30/17 14:16 Home Medications: Ambulatory Orders Aspirin [Ecotrin] 81 mg PO DAILY 10/05/17 Ticagrelor [Brilinta -] 90 mg PO BID 10/05/17 Oxycodone HCl/Acetaminophen [Percocet 5-325 mg Tablet] 1 - 2 tab PO Q8H PRN #20 tablet MDD 3 tab 10/30/17 Anemia: No Asthma: Yes Cancer: No Cardiac Disorders: No CVA: No COPD: No CHF: No Dementia: No Diabetes: No GI Disorders: Yes (GERD, CONSTIPATION, COLON POLYPS) Disorders: No HTN: Yes Hypercholesterolemia: Yes Liver Disease: Yes (NAFLD, FATTY LIVER, 2 HEPATIC HEMANGIOMATA, HEPATITIS) Seizures: No Thyroid Disease: No - Surgical History Abdominal Surgery: Yes (hernia repair w/mesh) Appendectomy: No Cardiac Surgery: No Cholecystectomy: No Lung Surgery: No Neurologic Surgery: No Orthopedic Surgery: Yes (SX OF KNEE) - Immunization History Immunization Up to Date: No - Suicide/Smoking/Psychosocial Hx Smoking History: Never smoked Have you smoked in the past 12 months: No Information on smoking cessation initiated: No Hx Alcohol Use: No Drug/Substance Use Hx: No Substance Use Type: None Hx Substance Use Treatment: No Review of Systems - Review of Systems Constitutional: No: Chills, Diaphoresis, Fever HEENTM: No: Blurred Vision, Double Vision Respiratory: No: Cough, Orthopnea, Shortness of Breath, Wheezing Cardiac (ROS): No: Chest Pain, Edema ABD/GI: No: Constipated, Diarrhea, Nausea, Vomiting : No: Discharge Musculoskeletal: Yes: Joint Pain, Joint Stiffness. No: Back Pain Integumentary: No: Bruising, Lesions, Lumps, Rash Neurological: No: Headache, Numbness, Paresthesia, Weakness Psychiatric: No: Anxiety, Depression *Physical Exam - Vital Signs Last Vital Signs Temp Pulse Resp BP Pulse Ox 99 F 90 20 138/91 99 10/30/17 13:50 10/30/17 13:50 10/30/17 13:50 10/30/17 13:50 10/30/17 13:50 - Physical Exam General Appearance: Yes: Nourished, Appropriately Dressed. No: Apparent Distress HEENT: positive: EOMI, JERRI, Normal ENT Inspection, Normal Voice, Symmetrical Neck: positive: Trachea midline, Normal Thyroid, Supple. negative: Tender, Rigid, Decreased range of motion Respiratory/Chest: positive: Chest Tender, Lungs Clear, Normal Breath Sounds. negative: Respiratory Distress, Accessory Muscle Use Cardiovascular: positive: Regular Rhythm, Regular Rate Gastrointestinal/Abdominal: positive: Normal Bowel Sounds, Flat, Soft. negative : Tender Musculoskeletal: positive: Other (Slightly decreased ROM at right knee and slight decreaed ROM at right hip with some tenderness to palpation over the right trocahnter, medial r knee, and lateral l knee. Has some ulnar deviation of the 3rd digit without obvious bony step off. Did have some distal third phalangyeal paresthesias but good cap refill with intact sensation. No DIP or PIP tenderness on that finger and other fingers appear to be without deformity. No wrist or anatomic snuff box tenderness. Left shoulder is also painful but non tender to palpation. ). negative: Normal Inspection Extremity: positive: Normal Capillary Refill. negative: Normal Inspection, Normal Range of Motion Integumentary: positive: Normal Color, Dry, Warm. negative: Erythema, Mottled Neurologic: positive: Fully Oriented, Alert, Normal Mood/Affect, Normal Response Medical Decision Making - Medical Decision Making 52 year old male presenting with traumatic deviation of right third digit and left shoulder, right knee, and right hip pain. Patient given 10 percocet with good pain control. No fractures or dislocation of the hand, hip, or knee on xray. Spoke with Dr. Durand of ortho and he feels that it may be a medial collateral ligament tear although our physical exam leads us to suspicion for sagital band rupture/ tear. either way the treatment is the same. Per Dr. Durand's instructions we lucio tapped the 3rd finger to the 2nd and placed the hand in a volar cast with wrist and almost complete extension of all four fingers of the right hand. Frank wrap around the splint and hand with a hole placed for his thumb to be free. Pain was well controlled and fingers were well aligned after the procedure. Patient sent home with 20 percocet as his is a [employer] employee and he is at very low risk of abuse. Also, his follow up with Ladarius is 6 days from now, so he will need extended pain control. Patient was also given cast instructions and return precautions. 10/30/17 18:43 *DC/Admit/Observation/Transfer Diagnosis at time of Disposition: Traumatic rupture of tendon of right hand Qualifiers: Encounter type: initial encounter Qualified Code(s): S66.911A - Strain of unspecified muscle, fascia and tendon at wrist and hand level, right hand, initial encounter - Discharge Dispostion Disposition: HOME Condition at time of disposition: Improved Admit: No - Prescriptions Prescriptions: Oxycodone HCl/Acetaminophen [Percocet 5-325 mg Tablet] 1 - 2 tab PO Q8H PRN #20 tablet MDD 3 tab PRN Reason: Pain Level 6-10 - Referrals Referrals: Harsha Durand MD [Staff Physician] - - Patient Instructions Additional Instructions: We believe that you ruptured/ tore a tendon in your hand. The x rays do not show any break. Please wear your brace 16/[address] Durand in 6 days. Please call him to set up the appointment. You can place a bag around your hand when you shower and gently clean around the cast. Please return if you have worsening pain that isn't better with the medication or you have worsening numbness/ tingling or loss of sensation in your fingers. Also if there is any swelling, fevers, chills, or other issues please return to the ED. - Post Discharge Activity Forms/Work/School Notes: Back to Work
[2017-10-30 14:32] VITALS: BP 138/91; PULSE 90; TEMP 99; BMI 36.2
--- NOTE | 2017-10-30 14:39 | PDOC ---
Attending Attestation - Resident Resident Name: LubaAniballolyshreyas - ED Attending Attestation I have performed the following: I have examined & evaluated the patient, The case was reviewed & discussed with the resident, I agree w/resident's findings & plan, Exceptions are as noted - HPI HPI: 10/30/17 14:43 52y M presents sp fall while trying to get some stuff out of his truck. He had gotten a tool from his truck, walked a few steps, turned around and fell landing on his hand and R thigh/knee. Pt presenting with a deformity of the R ring finger. suspect dislocation. no numbness/tingling/weakness. pt also with mild diffuse tenderness to the right hip and right knee. also complaining of L shoulder pain, which is chronic for him 10/30/17 17:04 pts xray is negative for fracture ?ligmantous injury - possible sagital band rupture? 10/30/17 18:01 case omaira chavez - thinks possible Medial collatoral tendon rupture vs saggital band rupture rquests lucio taping and splinting in extension and followup in 6-7days return precatuions were discussed
== END 2017-10-30 18:38 | disposition home or self-care (01) ==
LOC: FER 13:49
PROC: 2W3CX1Z Immobilization of Right Lower Arm using Splint (ICD-10-PCS; principal; 2017-10-30)
DX: S66.911A Strain of unspecified muscle, fascia and tendon at wrist and hand level, right hand, initial encounter (principal); W18.39XA Other fall on same level, initial encounter; Y93.89 Activity, other specified; Y92.9 Unspecified place or not applicable; Y99.0 Civilian activity done for income or pay; I10 Essential (primary) hypertension; E78.5 Hyperlipidemia, unspecified; I25.10 Atherosclerotic heart disease of native coronary artery without angina pectoris; J45.909 Unspecified asthma, uncomplicated
CPT/HCPCS: 73030-TC-LT-FY; 73110-TC-RT-FY; 73130-TC-RT-FY; 73523-TC-FY; 73562-TC-RT-FY; 99281-25

== ENCOUNTER 2017-11-27 14:45 | Emergency (ER) | payer OTHER, BC ==
[2017-11-27 14:56] VITALS: BP 147/103; PULSE 87; TEMP 98.1; BMI 34.8
[2017-11-27] MEDS ORDERED: KETOROLAC TROMETHAMINE 30 MG/1 ML VIAL IM ONE (15:01)
[2017-11-27] MEDS ORDERED: KETOROLAC TROMETHAMINE 30 MG/1 ML VIAL ONE (15:10)
--- NOTE | 2017-11-27 15:31 | PDOC ---
History of Present Illness - General History Source: Patient Exam Limitations: No Limitations - History of Present Illness Initial Comments: 11/27/17 16:26 The patient is a 52-year-old male with a significant past medical history of CAD s/p 2 stents, HTN, HLD, s/p hand surgery and tendon repair (2 weeks ago), who presents to the emergency department with right hand pain. Patient had a finger dislocation and tendon rupture, and is s/p right hand surgery for the 2nd and 3rd digits. Patient reports he was put in a splint after the procedure, but believes the splint is too tight and causing hand pain. The patient denies numbness, tingling, finger discoloration, chest pain, shortness of breath, and headache. The patient denies fever, chills, nausea, vomit, diarrhea. Hand Surgeon: Dr. Burger <Veronica Oviedo - Last Filed: 11/27/17 16:26> <Sterling Fontenot - Last Filed: 11/27/17 19:21> - General Chief Complaint: Pain, Acute Stated Complaint: POST FOLLOWUP HAND Time Seen by Provider: 11/27/17 14:49 Past History <Veronica Oviedo - Last Filed: 11/27/17 16:26> - Past Medical History Anemia: No Asthma: Yes Cancer: No Cardiac Disorders: No CVA: No COPD: No CHF: No Dementia: No Diabetes: No GI Disorders: Yes (GERD, CONSTIPATION, COLON POLYPS) Disorders: No HTN: Yes Hypercholesterolemia: Yes Liver Disease: Yes (NAFLD, FATTY LIVER, 2 HEPATIC HEMANGIOMATA, HEPATITIS) Seizures: No Thyroid Disease: No - Surgical History Abdominal Surgery: Yes (hernia repair w/mesh) Appendectomy: No Cardiac Surgery: No Cholecystectomy: No Lung Surgery: No Neurologic Surgery: No Orthopedic Surgery: Yes (SX OF KNEE) - Immunization History Immunization Up to Date: No - Suicide/Smoking/Psychosocial Hx Smoking History: Never smoked Have you smoked in the past 12 months: No Hx Alcohol Use: No Drug/Substance Use Hx: No Substance Use Type: None Hx Substance Use Treatment: No <Sterling Fontenot - Last Filed: 11/27/17 19:21> - Past Medical History Allergies/Adverse Reactions: Allergies Allergy/AdvReac Type Severity Reaction Status Date / Time No Known Drug Allergies Allergy Verified 10/30/17 14:16 Home Medications: Ambulatory Orders Aspirin [Ecotrin] 81 mg PO DAILY 10/05/17 Ticagrelor [Brilinta -] 90 mg PO BID 10/05/17 Oxycodone HCl/Acetaminophen [Percocet 5-325 mg Tablet] 1 - 2 tab PO Q8H PRN #20 tablet MDD 3 tab 10/30/17 Review of Systems - Review of Systems Able to Perform ROS?: Yes Comments:: 11/27/17 16:26 A complete review of 10 out of 10 review of systems is taken and is negative apart from what is previously mentioned below and in the HPI. <Veronica Oviedo - Last Filed: 11/27/17 16:26> *Physical Exam - Vital Signs Last Vital Signs Temp Pulse Resp BP Pulse Ox 98.1 F 87 18 147/103 100 11/27/17 14:54 11/27/17 14:54 11/27/17 14:54 11/27/17 14:54 11/27/17 14:54 - Physical Exam Comments: 11/27/17 16:26 Vitals: Triage Vital signs reviewed General Appearance: (+) moderate distress, well nourished well developed, Head: Atraumatic, normocephalic Cardiac: Regular rate and rhythm, no murmurs, no rubs, no gallops, Lungs: Clear to auscultation bilateral, good air movement bilaterally, Extremities: (+) Right upper extremity good capillary refill, good color to 4th and 5th digits, no signs of discoloration, no signs of vascular insufficiency, no cyanosis, clubbing, or edema Skin: Warm and dry, no rashes or lesions, no petechiae <Veronica Oviedo - Last Filed: 11/27/17 16:26> - Vital Signs Last Vital Signs Temp Pulse Resp BP Pulse Ox 98.1 F 87 18 147/103 100 11/27/17 14:54 11/27/17 14:54 11/27/17 14:54 11/27/17 14:54 11/27/17 14:54 <Sterling Fontenot - Last Filed: 11/27/17 19:21> ED Treatment Course - Medications Given in the ED: ED Medications Discontinued Medications Generic Name Dose Route Start Last Admin Trade Name Freq PRN Reason Stop Dose Admin Ketorolac Tromethamine 30 mg 11/27/17 15:01 11/27/17 15:08 Toradol Injection - IM 11/27/17 15:02 30 mg ONCE ONE Administration <Veronica Oviedo - Last Filed: 11/27/17 16:26> - Medications Given in the ED: ED Medications Discontinued Medications Generic Name Dose Route Start Last Admin Trade Name Ansley PRN Reason Stop Dose Admin Ketorolac Tromethamine 30 mg 11/27/17 15:01 11/27/17 15:08 Toradol Injection - IM 11/27/17 15:02 30 mg ONCE ONE Administration <Sterling Fontenot - Last Filed: 11/27/17 19:21> Medical Decision Making - Medical Decision Making Pt. status post revision for first and second digit dislocation and tendon repair. He states since the cast has been revised he is having significant pain over the ulnar aspect of his palm he feels that the cast is too tight and is asking to have it cut to allow more room On physical examination he has no signs or symptoms of vascular compromise we attempted ice and elevation as well as Toradol with no improvement in symptomatology patient adamant about cutting the side of his cast to allow for more room explained that he will probably need to have his cast replaced by his doctor and he is willing to follow up with his doctor in 1-2 days Cast cutter used to cut edge away from surgical site. Status post this patient' s symptoms improved states it feels much better Patient will follow-up with his surgeon in 2-3 days for recasting Findings, the need for follow-up and strict return instructions discussed with patient. <Sterling Fontenot - Last Filed: 11/27/17 19:21> *DC/Admit/Observation/Transfer - Attestations Scribe Attestion: 11/27/17 16:27 Documentation prepared by Veronica Oviedo, acting as medical unit secretary for Sterling Fontenot MD, MD/DO. <Veronica Oviedo - Last Filed: 11/27/17 16:26> <Sterling Fontenot - Last Filed: 11/27/17 19:21> Diagnosis at time of Disposition: Hand pain Qualifiers: Laterality: right Qualified Code(s): M79.641 - Pain in right hand - Referrals Referrals: Forrest Jacques MD [Primary Care Provider] - - Patient Instructions Additional Instructions: Follow-up with Dr. Burger in 2-3 days to have cast replaced return to ED for any cold blue fingers or for any concerns. - Post Discharge Activity
== END 2017-11-27 16:22 | disposition home or self-care (01) ==
LOC: JER 14:45
PROC: 3E0233Z Introduction of Anti-inflammatory into Muscle, Percutaneous Approach (ICD-10-PCS; principal; 2017-11-27)
DX: M79.641 Pain in right hand (principal); I25.10 Atherosclerotic heart disease of native coronary artery without angina pectoris; I10 Essential (primary) hypertension; E78.5 Hyperlipidemia, unspecified; Z95.5 Presence of coronary angioplasty implant and graft
CPT/HCPCS: 99281-25

== ENCOUNTER 2021-05-28 17:55 | Emergency (ER) | payer BC ==
[2021-05-28 18:10] VITALS: BP 149/91; PULSE 84; TEMP 98.2; BMI 41.8
== END 2021-05-28 19:20 | disposition home or self-care (01) ==
LOC: FER 17:55
DX: S49.91XA Unspecified injury of right shoulder and upper arm, initial encounter (principal); W10.8XXA Fall (on) (from) other stairs and steps, initial encounter; Y93.01 Activity, walking, marching and hiking
CPT/HCPCS: 71045-TC-FY; 73030-TC-RT-FY; 99285-25

== ENCOUNTER 2021-08-26 04:46 | Day surgery (SDC) | payer BC, OTHER ==
[2021-08-25 09:34] VITALS: BMI 41.8
[2021-08-26] MEDS ORDERED: LIDOCAINE HCL/PF 2% SDV 5ML VIAL ONE (10:31)
[2021-08-26] MEDS ORDERED: ceFAZolin SODIUM 1 GM VIAL ONE (10:31)
[2021-08-26] MEDS ORDERED: PROPOFOL 20 ML ONE ×2 (10:31→10:33)
[2021-08-26] MEDS ORDERED: MIDAZOLAM HCL 2 MG/2 ML SINGLE DOSE VIAL ONE (10:31)
[2021-08-26] MEDS ORDERED: DEXAMETHASONE SOD PHOSPHATE 4 MG/1 ML VIAL ONE (10:31)
[2021-08-26] MEDS ORDERED: KETOROLAC TROMETHAMINE 30 MG/1 ML VIAL ONE (10:31)
[2021-08-26] MEDS ORDERED: ONDANSETRON 4 MG/2 ML VIAL IVPUSH PRN (11:11)
[2021-08-26] MEDS ORDERED: oxyCODONE HCL 5 MG TABLET PO PRN ×2 (11:11)
[2021-08-26] MEDS ORDERED: LACTATED RINGERS SOLUTION 1,000 ML IV SCH (11:15)
[2021-08-26] MEDS ORDERED: LIDOCAINE HCL 2% JELLY 10 ML CARTRIDGE ONE ×2 (11:41→12:26)
[2021-08-26] MEDS ORDERED: ceFAZolin SODIUM 1 GM VIAL IVPB ONE (11:57)
[2021-08-26] MEDS ORDERED: LIDOCAINE HCL 2% JELLY 10 ML CARTRIDGE TP ONE (12:28)
[2021-08-26 15:46] VITALS: BP 144/84; PULSE 74; TEMP 98
== END 2021-08-26 15:45 | disposition home or self-care (01) ==
LOC: JASU-SURG 04:46
PROVIDERS: ATTEND Urology
PROC: 0T7D8DZ Dilation of Urethra with Intraluminal Device, Via Natural or Artificial Opening Endoscopic (ICD-10-PCS; principal; 2021-08-26 10:30)
DX: N40.1 Benign prostatic hyperplasia with lower urinary tract symptoms (principal); R39.12 Poor urinary stream
CPT/HCPCS: C9740; L8699; 94760

== ENCOUNTER 2023-02-24 00:14 | Inpatient (IN) | payer BC, OTHER ==
[2023-02-24] MEDS ORDERED: ONDANSETRON 4 MG/2 ML VIAL ONE ×2 (00:24→00:34)
[2023-02-24] MEDS ORDERED: KETOROLAC TROMETHAMINE 30 MG/1 ML VIAL ONE ×2 (00:24→06:02)
[2023-02-24] MEDS ORDERED: ONDANSETRON 4 MG/2 ML VIAL IVPB ONE (00:28)
[2023-02-24] MEDS ORDERED: KETOROLAC TROMETHAMINE 30 MG/1 ML VIAL IVPUSH ONE ×2 (00:28→06:01)
[2023-02-24] MEDS ORDERED: SODIUM CHLORIDE 1,000 ML IV ONE (00:28)
[2023-02-24] MEDS ORDERED: morphine CARPU-JECT 2 MG/1 ML DISP.SYRIN IVPUSH ONE (00:30)
[2023-02-24 00:32] VITALS: BMI 42.1
[2023-02-24] MEDS ORDERED: morphine SULFATE 4 MG/ML VIAL ONE (00:34)
[2023-02-24 02:20] LABS: HEMATOCRIT 44.7 % (35.4-49); HEMOGLOBIN 14.9 GM/dL (11.7-16.9); MCHC 33.3 g/dl (32.0-35.9); PLATELET COUNT 379 10^3/uL (134-434); RBC 5.74 M/mm3 (4.00-5.60); RDW 16.3 % (11.9-15.9); WHITE BLOOD COUNT 11.3 K/mm3 (4.0-10.0)
[2023-02-24 02:25] LABS: EPI CELLS 2 /uL (0-25.1); HYALINE CASTS 0 /uL (0-3.1); URINE APPEARANCE TURBID; URINE BACTERIA 6 /uL (0-1359); URINE BILIRUBIN NEGATIVE (NEGATIVE); URINE COLOR YELLOW; URINE GLUCOSE (UA) NEGATIVE (NEGATIVE); URINE KETONE TRACE (NEGATIVE); URINE LEUK ESTERASE NEGATIVE (NEGATIVE); URINE NITRITE NEGATIVE (NEGATIVE); URINE PROTEIN 1+ (NEGATIVE); URINE RBC 5 /uL (0-23.9); URINE UROBILINOGEN 0.2 mg/dL (0.2-1.0); URINE WBC 9 /uL (0-25.8)
[2023-02-24 02:53] LABS: POTASSIUM 4.5 mmol/L (3.5-5.1)
[2023-02-24 02:55] LABS: CALCIUM 9.7 mg/dL (8.5-10.1)
[2023-02-24 02:56] LABS: BLOOD UREA NITROGEN 16.1 mg/dL (7-18)
[2023-02-24 02:59] LABS: CREATININE 1.5 mg/dL (0.55-1.3)
[2023-02-24 03:00] LABS: BILIRUBIN,TOTAL 0.5 mg/dL (0.2-1); TOT PROT 7.4 g/dl (6.4-8.2)
[2023-02-24] MEDS ORDERED: TAMSULOSIN HCL 0.4 MG CAP PO ONE (06:18)
[2023-02-24] MEDS ORDERED: CEFTRIAXONE 1 GM in DEXTROSE 5%-WATER - 50 ML IVPB ONE (06:19)
[2023-02-24] MEDS ORDERED: KETOROLAC TROMETHAMINE 30 MG/1 ML VIAL IVPUSH PRN (06:20)
[2023-02-24] MEDS ORDERED: TAMSULOSIN HCL 0.4 MG CAP ONE (06:27)
[2023-02-24] MEDS ORDERED: cefTRIAXone SODIUM 1 GM VIAL ONE (06:27)
[2023-02-24 08:27] LABS: HEMATOCRIT 45.1 % (35.4-49); HEMOGLOBIN 15.1 G/dL (11.7-16.9); MCH 26.8 pg (25.7-33.7); MCHC 33.5 g/dl (32.0-35.9); MEAN CELL VOLUME 79.9 fl (80-96); MEAN PLT VOLUME 7.7 fl (7.5-11.1); PLATELET COUNT 317.9 10^3/uL (134-434); RBC 5.65 10^6/uL (4.00-5.60); RDW 16.3 % (11.9-15.9); WHITE BLOOD COUNT 11.5 10^3/uL (4.0-10.8)
[2023-02-24 08:30] LABS: CALCIUM 9.4 mg/dl (8.5-10); CREATININE 1.6 mg/dl (0.55-1.3); POTASSIUM 4.4 mmol/L (3.5-5.1)
[2023-02-24] MEDS: SODIUM CHLORIDE 1,000 ML IV SCH (08:52)
[2023-02-24] MEDS: FLUTICASONE/UMECLIDIN/VILANTER(200-62.5-25 TRELEGY ELLIPTA) INAHLER IH SCH (11:01)
[2023-02-24] MEDS: ROSUVASTATIN CA 40 MG TABLET PO SCH (21:52)
[2023-02-25] MEDS: HYDROmorphone HCl 2 MG/ML VIAL IVPB PRN ×2 (02:52→18:13)
[2023-02-25] MEDS: SODIUM CHLORIDE 1,000 ML IV SCH (06:16)
[2023-02-25] MEDS: CEFTRIAXONE 1 GM in DEXTROSE 5%-WATER - 50 ML IVPB SCH (09:02)
[2023-02-25] MEDS: FLUTICASONE/UMECLIDIN/VILANTER(200-62.5-25 TRELEGY ELLIPTA) INAHLER IH SCH (09:02)
[2023-02-25] MEDS: ROSUVASTATIN CA 40 MG TABLET PO SCH (21:23)
[2023-02-26] MEDS: HYDROmorphone HCl 2 MG/ML VIAL IVPB PRN ×5 (02:55→20:40)
[2023-02-26] MEDS: SODIUM CHLORIDE 1,000 ML IV SCH (06:15)
[2023-02-26] MEDS: ACETAMINOPHEN 325 MG TABLET (FP) PO PRN ×2 (06:16→20:42)
[2023-02-26] MEDS ORDERED: ONDANSETRON *ODT* 4 MG TABLET SL PRN (07:39)
[2023-02-26] MEDS ORDERED: ONDANSETRON 4 MG/2 ML VIAL IVPB ONE (07:39)
[2023-02-26 08:17] LABS: HEMATOCRIT 44.1 % (35.4-49); HEMOGLOBIN 14.4 G/dL (11.7-16.9); MCH 26.3 pg (25.7-33.7); MCHC 32.6 g/dl (32.0-35.9); MEAN CELL VOLUME 80.6 fl (80-96); MEAN PLT VOLUME 7.6 fl (7.5-11.1); PLATELET COUNT 280.3 10^3/uL (134-434); RBC 5.47 10^6/uL (4.00-5.60); RDW 16.8 % (11.9-15.9)
[2023-02-26 08:57] LABS: ALBUMIN 3.4 g/dl (3.4-5.0); BILIRUBIN,TOTAL 0.7 mg/dl (0.2-1); CREATININE 1.7 mg/dl (0.55-1.3); POTASSIUM 4.5 mmol/L (3.5-5.1)
[2023-02-26] MEDS: CEFTRIAXONE 1 GM in DEXTROSE 5%-WATER - 50 ML IVPB SCH (09:39)
[2023-02-26] MEDS: FLUTICASONE/UMECLIDIN/VILANTER(200-62.5-25 TRELEGY ELLIPTA) INAHLER IH SCH (09:40)
[2023-02-26] MEDS: ONDANSETRON 4 MG/2 ML VIAL IVPB PRN ×2 (14:23→21:00)
[2023-02-26] MEDS: ROSUVASTATIN CA 40 MG TABLET PO SCH (22:13)
[2023-02-27] MEDS: SODIUM CHLORIDE 1,000 ML IV SCH (02:32)
[2023-02-27 08:38] LABS: POTASSIUM 4.7 mmol/L (3.5-5.1)
[2023-02-27 08:43] LABS: CALCIUM 8.9 mg/dL (8.5-10.1)
[2023-02-27 08:44] LABS: BLOOD UREA NITROGEN 14.2 mg/dL (7-18)
[2023-02-27 08:47] LABS: CREATININE 1.7 mg/dL (0.55-1.3)
[2023-02-27 08:48] LABS: BILIRUBIN,TOTAL 0.7 mg/dL (0.2-1); TOT PROT 6.2 g/dl (6.4-8.2)
[2023-02-27 08:49] LABS: ALBUMIN 3.2 g/dl (3.4-5.0)
[2023-02-27] MEDS: CEFTRIAXONE 1 GM in DEXTROSE 5%-WATER - 50 ML IVPB SCH (09:43)
[2023-02-27] MEDS ORDERED: LIDOCAINE HCL 2% JELLY 11 ML TP ONE (12:18)
[2023-02-27] MEDS ORDERED: ceFAZolin SODIUM 1 GM VIAL IVPB ONE (12:33)
[2023-02-27] MEDS ORDERED: ONDANSETRON 4 MG/2 ML VIAL IVPUSH PRN (12:59)
[2023-02-27] MEDS ORDERED: LACTATED RINGERS SOLUTION 1,000 ML IV SCH (13:00)
[2023-02-27] MEDS ORDERED: ONDANSETRON 4 MG/2 ML VIAL IVPB PRN (13:12)
[2023-02-27] MEDS ORDERED: SODIUM CHLORIDE 1,000 ML IV SCH (13:12)
[2023-02-27] MEDS ORDERED: ONDANSETRON *ODT* 4 MG TABLET SL PRN (13:12)
[2023-02-27] MEDS ORDERED: HYDROmorphone HCl 2 MG/ML VIAL IVPB PRN (13:12)
[2023-02-27] MEDS ORDERED: ACETAMINOPHEN 325 MG TABLET (FP) PO PRN (13:12)
[2023-02-27] MEDS: FLUTICASONE/UMECLIDIN/VILANTER(200-62.5-25 TRELEGY ELLIPTA) INAHLER IH SCH ×2 (14:58→19:45)
[2023-02-27] MEDS ORDERED: ROSUVASTATIN CA 20 MG TABLET PO SCH (22:00)
[2023-02-27] MEDS ORDERED: ROSUVASTATIN CA 40 MG TABLET PO SCH (22:00)
[2023-02-28 07:55] LABS: HEMATOCRIT 40.3 % (35.4-49); HEMOGLOBIN 13.9 GM/dL (11.7-16.9); MCH 26.3 pg (25.7-33.7); MCHC 34.5 g/dl (32.0-35.9); MEAN CELL VOLUME 76.3 fl (80-96); MEAN PLT VOLUME 6.8 fl (7.5-11.1); PLATELET COUNT 335 10^3/uL (134-434); RBC 5.28 M/mm3 (4.00-5.60); RDW 15.8 % (11.9-15.9); WHITE BLOOD COUNT 11.5 K/mm3 (4.0-10.0)
[2023-02-28 08:09] LABS: POTASSIUM 4.8 mmol/L (3.5-5.1)
[2023-02-28 08:12] LABS: BLOOD UREA NITROGEN 15.6 mg/dL (7-18)
[2023-02-28 08:13] LABS: CALCIUM 9.2 mg/dL (8.5-10.1)
[2023-02-28 08:14] LABS: CREATININE 1.3 mg/dL (0.55-1.3)
[2023-02-28 08:16] LABS: BILIRUBIN,TOTAL 0.3 mg/dL (0.2-1); TOT PROT 6.2 g/dl (6.4-8.2)
[2023-02-28] MEDS: FLUTICASONE/UMECLIDIN/VILANTER(200-62.5-25 TRELEGY ELLIPTA) INAHLER IH SCH (09:50)
[2023-02-28] MEDS ORDERED: CEFTRIAXONE 1 GM in DEXTROSE 5%-WATER - 50 ML IVPB SCH (10:00)
[2023-02-28 11:48] VITALS: BP 121/65; PULSE 58; RESP 18; TEMP 97.8
== END 2023-02-28 14:38 | disposition home or self-care (01) | DRG 660 ==
LOC: FER 00:14 → FM/S 06:16 → UNDOADMOB 06:24 → OBSVTOIN 14:32 → J8W 02-27 02:18
PROVIDERS: ADMIT Family Medicine; ATTEND Family Medicine
PROC: 0T7D8ZZ Dilation of Urethra, Via Natural or Artificial Opening Endoscopic (ICD-10-PCS; 2023-02-27)
PROC: BT1DZZZ Fluoroscopy of Right Kidney, Ureter and Bladder (ICD-10-PCS; 2023-02-27)
PROC: 0T9680Z Drainage of Right Ureter with Drainage Device, Via Natural or Artificial Opening Endoscopic (ICD-10-PCS; 2023-02-27)
PROC: 0TCB8ZZ Extirpation of Matter from Bladder, Via Natural or Artificial Opening Endoscopic (ICD-10-PCS; principal; 2023-02-27 12:00)
PROC: 0T768DZ Dilation of Right Ureter with Intraluminal Device, Via Natural or Artificial Opening Endoscopic (ICD-10-PCS; 2023-02-27 12:00)
DX: N21.0 Calculus in bladder (principal); N13.2 Hydronephrosis with renal and ureteral calculous obstruction; Z68.41 Body mass index [BMI] 40.0-44.9, adult; I25.10 Atherosclerotic heart disease of native coronary artery without angina pectoris; K21.9 Gastro-esophageal reflux disease without esophagitis; K59.00 Constipation, unspecified; K76.0 Fatty (change of) liver, not elsewhere classified; E78.5 Hyperlipidemia, unspecified; E11.9 Type 2 diabetes mellitus without complications; I10 Essential (primary) hypertension; E66.01 Morbid (severe) obesity due to excess calories; R33.9 Retention of urine, unspecified; N40.1 Benign prostatic hyperplasia with lower urinary tract symptoms; R33.8 Other retention of urine; Z95.5 Presence of coronary angioplasty implant and graft
CPT/HCPCS: 36415; 74176-TC; 76000-TC-FY; 76775-TC; 80048; 80053; 81003; 82360; 83036; 83690; 84484; 85027; 87081; 87086; 87635; 88300-TC; 94760; 99285-25; C1758; C2617; G0378; Q0162

== ENCOUNTER 2023-03-20 04:04 | Day surgery (SDC) | payer BC, OTHER ==
[2023-03-15 17:11] VITALS: BMI 39.0
[2023-03-20] MEDS ORDERED: MIDAZOLAM HCL 2 MG/2 ML SINGLE DOSE VIAL ONE (14:27)
[2023-03-20] MEDS ORDERED: ceFAZolin SODIUM 1 GM VIAL IVPB ONE (14:30)
[2023-03-20 15:16] VITALS: RESP 18
[2023-03-20 16:22] VITALS: BP 135/82; PULSE 84; TEMP 97.7
== END 2023-03-20 16:05 | disposition home or self-care (01) ==
LOC: JASU-SURG 04:04
PROVIDERS: ATTEND Urology
PROC: 0TC63ZZ Extirpation of Matter from Right Ureter, Percutaneous Approach (ICD-10-PCS; principal; 2023-03-20 14:00)
DX: N20.1 Calculus of ureter (principal)

== ENCOUNTER 2024-07-14 06:21 | Day surgery (SDC) | payer OTHER ==
[2024-07-01 15:32] VITALS: BMI 36.9
[2024-07-14] MEDS ORDERED: SUCCINYLCHOLINE CHLORIDE 200 MG/10 ML SYRINGE ONE (06:54)
[2024-07-14] MEDS ORDERED: METOCLOPRAMIDE HCL INJECTION 10 MG/2 ML VIAL ONE (06:54)
[2024-07-14] MEDS ORDERED: ROCURONIUM BROMIDE 50 MG/5 ML SYRINGE ONE ×2 (06:54→08:43)
[2024-07-14] MEDS ORDERED: ONDANSETRON 4 MG/2 ML VIAL ONE (06:54)
[2024-07-14] MEDS ORDERED: ceFAZolin SODIUM 1 GM VIAL ONE ×2 (06:54)
[2024-07-14] MEDS ORDERED: DEXAMETHASONE SOD PHOSPHATE 4 MG/1 ML VIAL ONE (06:54)
[2024-07-14] MEDS ORDERED: MIDAZOLAM HCL 2 MG/2 ML SINGLE DOSE VIAL ONE (06:59)
[2024-07-14] MEDS ORDERED: ACETAMINOPHEN INJECTION 100 ML ONE (07:04)
[2024-07-14] MEDS ORDERED: BUPIVACAINE HCL/PF 0.5% (5 MG/ML) 30 ML VIAL IJ ONE (07:04)
[2024-07-14] MEDS ORDERED: BUPIVACAINE LIPOSOME/PF (EXPAREL) 266 MG/20 ML VIAL ONE (07:04)
[2024-07-14] MEDS ORDERED: EPINEPHrine/PF 1 MG/1 ML (1:1,000) AMPULE ONE (07:28)
[2024-07-14] MEDS ORDERED: VANCOMYCIN 1,000 MG VIAL (RESTRICTED TO ID ONLY) ONE ×3 (07:28→10:04)
[2024-07-14] MEDS ORDERED: TRANEXAMIC ACID 1000 MG/10 ML VIAL ONE (07:29)
[2024-07-14] MEDS ORDERED: ALBUTEROL SO4 HFA INHALER IH ONE (07:49)
[2024-07-14] MEDS ORDERED: PROPOFOL 40 ML ONE (07:52)
[2024-07-14] MEDS ORDERED: ONDANSETRON 4 MG/2 ML VIAL IVPUSH PRN ×2 (08:41→10:25)
[2024-07-14] MEDS ORDERED: oxyCODONE HCL 5 MG TABLET PO PRN ×2 (08:41)
[2024-07-14] MEDS ORDERED: SUGAMMADEX SODIUM 200 MG/2 ML VIAL ONE ×2 (08:44→10:00)
[2024-07-14] MEDS ORDERED: LACTATED RINGERS SOLUTION 1,000 ML IV SCH (08:45)
[2024-07-14] MEDS ORDERED: GLYCOPYRROLATE 0.2 MG/1 ML VIAL ONE (08:45)
[2024-07-14] MEDS ORDERED: PHENYLEPHRINE HCL 10 MG/1 ML SINGLE DOSE VIAL ONE (08:54)
[2024-07-14] MEDS: VANCOMYCIN 1,000 MG VIAL (RESTRICTED TO ID ONLY) IVPB ONE (10:05)
[2024-07-14] MEDS ORDERED: PROPOFOL 20 ML ONE (10:07)
[2024-07-14] MEDS ORDERED: MAGNESIUM HYDROX 2400MG/30ML ORAL SUSPENSION 30 ML CUP PO PRN (10:25)
[2024-07-14] MEDS ORDERED: MAG HYDROX/AL HYDROX/SIMETH 30 ML UNIT-DOSE CUP PO PRN (10:25)
[2024-07-14] MEDS ORDERED: OMALIZUMAB 150 MG/ML IJ SCH (10:45)
[2024-07-14] MEDS ORDERED: TIRZEPATIDE 7.5 MG/0.5 ML SQ SCH (10:45)
[2024-07-14] MEDS ORDERED: [UNRECOGNIZED DRUG - OTHER] SQ SCH (10:45)
[2024-07-14] MEDS: CEFAZOLIN SODIUM 3 GM in DEXTROSE 5%-WATER 100 ML IVPB SCH (18:12)
[2024-07-14] MEDS: LACTATED RINGERS SOLUTION 1,000 ML IV SCH (18:14)
[2024-07-14] MEDS: VANCOMYCIN/WATER FOR INJ (PEG) 1,000 MG/200 ML BAG IVPB ONE (20:09)
[2024-07-14] MEDS ORDERED: PATIENT'S OWN MEDICATION (NON-FORMULARY) (Icosapent Ethyl [Vascepa] 1 GM Capsule) PO SCH (22:00)
[2024-07-14] MEDS ORDERED: ROSUVASTATIN CA 40 MG TABLET PO SCH (22:00)
[2024-07-14] MEDS: ROSUVASTATIN CA 20 MG TABLET PO SCH (22:07)
[2024-07-14] MEDS: SENNOSIDES/DOCUSATE COMBO (SENNA PLUS) TABLET (UD) PO SCH (22:08)
[2024-07-14] MEDS: GABAPENTIN 300 MG CAPSULE PO SCH (22:08)
[2024-07-14 22:33] VITALS: RESP 16
[2024-07-15] MEDS: ASPIRIN 325 MG TABLET PO SCH (07:58)
[2024-07-15 08:35] LABS: HEMATOCRIT 48.4 % (35.4-49); HEMOGLOBIN 15.3 G/dL (11.7-16.9); MCH 27.1 pg (25.7-33.7); MCHC 31.6 g/dl (32.0-35.9); MEAN CELL VOLUME 85.8 fl (80-96); MEAN PLT VOLUME 7.5 fl (7.5-11.1); PLATELET COUNT 300.3 10^3/uL (134-434); RBC 5.64 10^6/uL (4.00-5.60); RDW 16.5 % (11.9-15.9); WHITE BLOOD COUNT 14.4 10^3/uL (4.0-10.8)
[2024-07-15 09:05] LABS: CALCIUM 9.4 mg/dl (8.5-10.1); CREATININE 0.9 mg/dl (0.6-1.3); POTASSIUM 4.1 mmol/L (3.5-5.1)
[2024-07-15] MEDS: PANTOPRAZOLE 40 MG TABLET PO SCH (09:07)
[2024-07-15] MEDS: FLUTICASONE/UMECLIDIN/VILANTER(100-62.5-25 TRELEGY ELLIPTA) INAHLER IH SCH (09:07)
[2024-07-15] MEDS: CHOLECALCIFEROL (VIT D3) 5000 UNITS (125 MCG) CAP PO SCH (09:07)
[2024-07-15] MEDS: MULTIVITAMINS (DAILY MVI) TABLET (FP) PO SCH (09:07)
[2024-07-15] MEDS: FERROUS SO4 325 MG TABLET (FP) PO SCH (09:07)
[2024-07-15] MEDS ORDERED: ISOTRETINOIN PO SCH (10:00)
[2024-07-15 10:45] VITALS: TEMP 98.2
[2024-07-15 16:32] VITALS: BP 121/87; PULSE 103
== END 2024-07-15 14:45 | disposition home or self-care (01) ==
LOC: FASUSAT 06:21 → SUATTDRO 06:21 → FM/S 12:49 → FASUSAT 07-15 14:45
PROC: 0LS30ZZ Reposition Right Upper Arm Tendon, Open Approach (ICD-10-PCS; 2024-07-14)
PROC: 0RHJ04Z Insertion of Internal Fixation Device into Right Shoulder Joint, Open Approach (ICD-10-PCS; 2024-07-14)
PROC: 0LS34ZZ Reposition Right Upper Arm Tendon, Percutaneous Endoscopic Approach (ICD-10-PCS; 2024-07-14)
PROC: 0RHJ44Z Insertion of Internal Fixation Device into Right Shoulder Joint, Percutaneous Endoscopic Approach (ICD-10-PCS; 2024-07-14)
PROC: 0RRJ0JZ Replacement of Right Shoulder Joint with Synthetic Substitute, Open Approach (ICD-10-PCS; principal; 2024-07-14 08:21)
DX: M19.011 Primary osteoarthritis, right shoulder (principal); M75.22 Bicipital tendinitis, left shoulder
CPT/HCPCS: 23430; 23472; C1776; 36415; 73030-TC-LT-FY; 80048; 85027; 88305-TC; 88311-TC; 94760; 97010-GP; 97116-GP; 97162-GP; J0131

== ENCOUNTER 2024-11-04 23:03 | Observation (INO) | payer BC, OTHER ==
[2024-11-04 23:08] VITALS: BMI 38.3
[2024-11-04] MEDS ORDERED: ACETAMINOPHEN INJECTION 100 ML ONE (23:27)
[2024-11-04] MEDS ORDERED: morphine SULFATE 4 MG/ML VIAL ONE (23:39)
[2024-11-04 23:43] LABS: BASO % 1.1 % (0-2.0); HEMATOCRIT 46.3 % (35.4-49); HEMOGLOBIN 15.8 GM/dL (11.7-16.9); LYMPH % 28.2 % (8-40); MCH 27.3 pg (25.7-33.7); MCHC 34.1 g/dl (32.0-35.9); MEAN CELL VOLUME 80.1 fl (80-96); MEAN PLT VOLUME 6.6 fl (7.5-11.1); MONO % 7.6 % (3.8-10.2); NEUT % 62.1 % (42.8-82.8); PLATELET COUNT 354 10^3/uL (134-434); RBC 5.78 M/mm3 (4.00-5.60); RDW 15.9 % (11.9-15.9); WHITE BLOOD COUNT 8.8 K/mm3 (4.0-10.0)
[2024-11-04] MEDS: morphine CARPU-JECT 4 MG/1 ML DISP.SYRIN IVPUSH ONE (23:45)
[2024-11-04 23:49] LABS: INR 1.07 (0.83-1.09); PROTHROMBIN TIME (PATIENT) 11.8 SEC (9.7-13.0)
[2024-11-04] MEDS: ONDANSETRON 4 MG/2 ML VIAL IVPUSH ONE (23:51)
[2024-11-04] MEDS: ACETAMINOPHEN 1000 MG/100 ML BAG IVPB ONE (23:51)
[2024-11-04] MEDS: LACTATED RINGERS SOLUTION 1000 ML INFUS.BAG IV ONE (23:51)
[2024-11-04 23:52] LABS: ACTIVATED PTT 31.5 SECONDS (25.2-36.5)
[2024-11-05 00:18] LABS: POTASSIUM 3.7 mmol/L (3.5-5.1)
[2024-11-05 00:20] LABS: CALCIUM 9.2 mg/dL (8.5-10.1)
[2024-11-05 00:21] LABS: ALBUMIN 3.8 g/dl (3.4-5.0); BLOOD UREA NITROGEN 16.5 mg/dL (7-18)
[2024-11-05 00:24] LABS: CREATININE 1.1 mg/dL (0.55-1.3)
[2024-11-05 00:26] LABS: BILIRUBIN,TOTAL 0.4 mg/dL (0.2-1); TOT PROT 6.6 g/dl (6.4-8.2)
[2024-11-05] MEDS: DEXTROSE 5%-0.45% SALINE 1,000 ML IV SCH (03:37)
[2024-11-05] MEDS ORDERED: morphine SULFATE 4 MG/ML VIAL IVPUSH PRN ×2 (06:00→16:16)
[2024-11-05] MEDS ORDERED: ONDANSETRON 4 MG/2 ML VIAL IVPUSH PRN ×2 (06:00→16:16)
[2024-11-05 09:22] LABS: EOS % 1.6 % (0-4.5); HEMATOCRIT 45.1 % (35.4-49); LYMPH % 25.9 % (8-40); MCH 27.2 pg (25.7-33.7); MCHC 33.2 g/dl (32.0-35.9); MEAN CELL VOLUME 82.2 fl (80-96); MEAN PLT VOLUME 6.9 fl (7.5-11.1); NEUT % 63.5 % (42.8-82.8); PLATELET COUNT 305 10^3/uL (134-434); RBC 5.49 M/mm3 (4.00-5.60); RDW 16.1 % (11.9-15.9); WHITE BLOOD COUNT 6.1 K/mm3 (4.0-10.0)
[2024-11-05 09:39] LABS: POTASSIUM 4.6 mmol/L (3.5-5.1)
[2024-11-05 09:47] LABS: BLOOD UREA NITROGEN 12.8 mg/dL (7-18)
[2024-11-05] MEDS: FLUTICASONE/UMECLIDIN/VILANTER(200-62.5-25 TRELEGY ELLIPTA) INAHLER IH SCH (10:32)
[2024-11-05] MEDS: FERROUS SO4 325 MG TABLET (FP) PO SCH ×2 (10:32→21:54)
[2024-11-05] MEDS ORDERED: LACTATED RINGERS SOLUTION 1,000 ML IV SCH (15:15)
[2024-11-05] MEDS ORDERED: oxyCODONE HCL 5 MG TABLET PO PRN ×2 (15:15→16:16)
[2024-11-05] MEDS ORDERED: MIDAZOLAM HCL 2 MG/2 ML SINGLE DOSE VIAL ONE (15:17)
[2024-11-05] MEDS ORDERED: LIDOCAINE HCL 2% 100 MG/5 ML DISP.SYRIN ONE (15:24)
[2024-11-05] MEDS ORDERED: ONDANSETRON 4 MG/2 ML VIAL ONE (15:24)
[2024-11-05] MEDS ORDERED: DEXAMETHASONE SOD PHOSPHATE 4 MG/1 ML VIAL ONE (15:24)
[2024-11-05] MEDS ORDERED: PROPOFOL 20 ML ONE ×2 (15:25→15:26)
[2024-11-05] MEDS ORDERED: ceFAZolin SODIUM 1 GM VIAL ONE (15:33)
[2024-11-05] MEDS: ceFAZolin SODIUM 1 GM VIAL IVPB ONE (15:34)
[2024-11-05] MEDS: LACTATED RINGERS SOLUTION 1,000 ML IV SCH (16:18)
[2024-11-05 20:42] VITALS: RESP 18
[2024-11-05] MEDS: ROSUVASTATIN CA 20 MG TABLET PO SCH (21:54)
[2024-11-05] MEDS ORDERED: ROSUVASTATIN CA 40 MG TABLET PO SCH (22:00)
[2024-11-06 08:20] VITALS: PULSE 91
[2024-11-06 10:17] VITALS: BP 128/81; TEMP 97.7
[2024-11-06] MEDS: FLUTICASONE/UMECLIDIN/VILANTER(200-62.5-25 TRELEGY ELLIPTA) INAHLER IH SCH (11:00)
[2024-11-13 14:07] LABS: CA OXALATE MONOHYDR. 20 % (.); SIZE 3x3 mm (.); URIC ACID 80 % (.); WEIGHT 201 mg (.)
== END 2024-11-06 12:26 | disposition home or self-care (01) ==
LOC: JER 23:03 → JERBED 11-05 00:14 → J5S 11-05 05:13
PROVIDERS: ADMIT Student in an Organized Health Care Education/Training Program; ATTEND Family Medicine
PROC: 0TCB7ZZ Extirpation of Matter from Bladder, Via Natural or Artificial Opening (ICD-10-PCS; 2024-11-05)
PROC: 3E033NZ Introduction of Analgesics, Hypnotics, Sedatives into Peripheral Vein, Percutaneous Approach (ICD-10-PCS; principal; 2024-11-05 16:00)
PROC: 3E0337Z Introduction of Electrolytic and Water Balance Substance into Peripheral Vein, Percutaneous Approach (ICD-10-PCS; 2024-11-05 16:00)
DX: N21.0 Calculus in bladder (principal); N40.0 Benign prostatic hyperplasia without lower urinary tract symptoms; I11.9 Hypertensive heart disease without heart failure; R10.31 Right lower quadrant pain; J45.909 Unspecified asthma, uncomplicated; K21.9 Gastro-esophageal reflux disease without esophagitis; E78.5 Hyperlipidemia, unspecified; Z87.442 Personal history of urinary calculi
CPT/HCPCS: 36415; 76775-TC; 76856-TC; 80048; 80053; 82360; 85025; 85610; 85730; 86850; 86900; 86901; 88300-TC; 93005; 93010; 94660; 94760; 99285-25; C1758; G0378; J0131